=== PATIENT | female | born 1985 | race African-American/Black ===

== ENCOUNTER 2017-01-26 22:12 | Emergency (ER) | payer OTHER ==
[~2017-01-26] VITALS: Ht 160 cm; Wt 71.7 kg
[~2017-01-26 22:12] MED LIST: AUGMENTIN 875875 MG PO; BACTRIM DS TAB1 EACH PO; FLEXERIL PO; IBUPROFEN 600600 M1 PO; NAPROSYN500 MG PO; NOHOMEMEDICATIONS; NORCO 5-325 TA1 EACH PO; TYLENOL EX-STR500 M2 PO
[2017-01-26 22:57] LABS: URINE BILIRUBIN NEGATIVE (Negative); URINE BLOOD NEGATIVE (Negative); URINE COLOR YELLOW; URINE GLUCOSE-RANDOM* NEGATIVE (Negative); URINE KETONES NEGATIVE (Negative); URINE LEUKOCYTES-REFLEX 1+ (Negative); URINE PROTEIN (DIPSTICK) NEGATIVE (Negative); URINE UROBILINOGEN 0.2 E.U./dl (0.2-1.0)
[2017-01-26 22:57] LABS: ABSOLUTE NEUTROPHILS 8.4 thou/uL (1.4-8.2); BASOPHILS 0.4 % (0.0-2.0); EOSINOPHILS 2.4 % (0.0-3.0); HEMOGLOBIN 11.5 gm/dL (12.0-15.0); LYMPHOCYTES 22.1 % (24.0-44.0); MCH 28.2 pg (26.0-34.0); MCV 85.5 fL (80.0-100.0); MONOCYTES 7.1 % (1.0-8.0); PLATELET COUNT 212 thou/uL (150-400); RBC 4.09 mil/uL (4.20-5.00); RDW 13.5 % (10.5-14.5); WBC 12.4 thou/uL (4.0-11.0)
[2017-01-26 22:58] LABS: MANUAL DIFF NO
[2017-01-26 23:08] LABS: CASTS None Seen /LPF (None Seen); SQUAMOUS 4-10 Moderate /LPF (0-3)
[2017-01-26 23:09] LABS: CRYSTALS None Seen /LPF (None Seen); URINE RBC None Seen /HPF (0-2); URINE WBC-REFLEX 0-5 Rare /HPF (0-5)
[2017-01-26 23:17] LABS: CALCIUM 8.5 mg/dL (8.5-10.1); CREATININE 0.7 mg/dL (0.6-1.3); POTASSIUM 3.7 mmol/L (3.5-5.1)
[2017-01-26 23:22] LABS: ALBUMIN 3.2 g/dL (3.4-5.0); TOTAL BILIRUBIN 0.2 mg/dL (<0.1-1.0); TOTAL PROTEIN 6.4 g/dL (6.4-8.2)
[2017-01-27 00:17] VITALS: BP 142/83
== END 2017-01-27 00:18 | disposition home or self-care (01) ==
LOC: ER 22:12
PROVIDERS: Physician Assistant
DX: O26.899 Other specified pregnancy related conditions, unspecified trimester (principal); M54.5 Low back pain; R60.9 Edema, unspecified; R10.30 Lower abdominal pain, unspecified; R51 Headache; F17.210 Nicotine dependence, cigarettes, uncomplicated; F10.99 Alcohol use, unspecified with unspecified alcohol-induced disorder; Z3A.00 Weeks of gestation of pregnancy not specified

== ENCOUNTER 2017-02-12 20:06 | Emergency (ER) | payer OTHER ==
[~2017-02-12] VITALS: Ht 160 cm; Wt 88.9 kg
[2017-02-12 20:29] LABS: URINE BILIRUBIN NEGATIVE (Negative); URINE BLOOD 3+ (Negative); URINE COLOR YELLOW; URINE GLUCOSE-RANDOM* NEGATIVE (Negative); URINE KETONES 1+ (Negative); URINE NITRITE NEGATIVE (Negative); URINE PROTEIN (DIPSTICK) 1+ (Negative); URINE SPECIFIC GRAVITY 1.025 (1.003-1.035)
[2017-02-12 20:32] LABS: CASTS None Seen /LPF (None Seen); CRYSTALS None Seen /LPF (None Seen); SQUAMOUS 0-3 Few /LPF (0-3); URINE RBC 3-10 Few /HPF (0-2); URINE WBC 0-5 Rare /HPF (0-5)
[2017-02-12 20:56] LABS: ABSOLUTE NEUTROPHILS 8.6 thou/uL (1.4-8.2); BASOPHILS 0.4 % (0.0-2.0); EOSINOPHILS 2.8 % (0.0-3.0); HEMATOCRIT 33.6 % (37.0-47.0); LYMPHOCYTES 23.9 % (24.0-44.0); MCH 28.1 pg (26.0-34.0); MCHC 32.8 g/dL (28.0-37.0); MCV 85.6 fL (80.0-100.0); MONOCYTES 6.2 % (1.0-8.0); PLATELET COUNT 209 thou/uL (150-400); POLYS 66.7 % (36.0-66.0); RBC 3.92 mil/uL (4.20-5.00); RDW 13.7 % (10.5-14.5); WBC 12.9 thou/uL (4.0-11.0)
[2017-02-12 20:57] LABS: MANUAL DIFF NO
[2017-02-12 21:06] LABS: CALCIUM 8.5 mg/dL (8.5-10.1); CREATININE 0.8 mg/dL (0.6-1.0); POTASSIUM 3.5 mmol/L (3.5-5.1)
[2017-02-12 22:15] VITALS: BP 92/47
== END 2017-02-12 22:17 | disposition home or self-care (01) ==
LOC: ER 20:06
PROVIDERS: Nurse Practitioner Family
DX: O20.0 Threatened abortion (principal); G89.29 Other chronic pain; M54.9 Dorsalgia, unspecified; F17.210 Nicotine dependence, cigarettes, uncomplicated; Z3A.01 Less than 8 weeks gestation of pregnancy; Z98.890 Other specified postprocedural states

== ENCOUNTER 2017-02-17 09:15 | Emergency (ER) | payer OTHER ==
[~2017-02-17] VITALS: Ht 162.6 cm; Wt 72.6 kg
[2017-02-17 09:38] LABS: ABSOLUTE NEUTROPHILS 8.6 thou/uL (1.4-8.2); BASOPHILS 0.5 % (0.0-2.0); EOSINOPHILS 1.6 % (0.0-3.0); HEMATOCRIT 37.7 % (37.0-47.0); HEMOGLOBIN 12.2 gm/dL (12.0-15.0); LYMPHOCYTES 17.5 % (24.0-44.0); MCH 28.1 pg (26.0-34.0); MCHC 32.4 g/dL (28.0-37.0); MCV 86.8 fL (80.0-100.0); MONOCYTES 5.5 % (1.0-8.0); PLATELET COUNT 218 thou/uL (150-400); POLYS 74.9 % (36.0-66.0); RBC 4.34 mil/uL (4.20-5.00); RDW 13.8 % (10.5-14.5); WBC 11.5 thou/uL (4.0-11.0)
[2017-02-17 09:39] LABS: MANUAL DIFF NO
[2017-02-17 10:25] LABS: ALBUMIN 1.7 g/dL (3.4-5.0); ALKALINE PHOSPHATASE 51 U/L (46-116); ANION GAP 11 mmol/L (7-16); BUN 5 mg/dL (7-18); CHLORIDE 117 mmol/L (98-107); CO2 16 mmol/L (21-32); CREATININE 0.2 mg/dL (0.6-1.0); GLUCOSE 58 mg/dL (74-106); POTASSIUM 3.2 mmol/L (3.5-5.1); SGOT 29 U/L (15-37); SGPT 14 U/L (30-65); TOTAL BILIRUBIN 0.2 mg/dL (<0.1-1.0); TOTAL PROTEIN 3.4 g/dL (6.4-8.2)
[2017-02-17 10:27] LABS: SODIUM 144 mmol/L (136-145)
[2017-02-17 10:33] LABS: CALCIUM < 5.0 mg/dL (8.5-10.1)
[2017-02-17 10:57] LABS: POC CA IONIZED 4.7 mg/dL (4.5-5.3); POC CREATININE 0.6 mg/dL (0.6-1.3); POC HEMOGLOBIN 12.2 g/dL (12.0-15.0); POC POTASSIUM 3.9 mmol/L (3.5-5.1)
[2017-02-17] MEDS ORDERED: NORCO 5-325 TA1 EACH PO (11:46)
[2017-02-17 12:20] VITALS: BP 106/64
== END 2017-02-17 12:20 | disposition home or self-care (01) ==
LOC: ER 09:15
PROVIDERS: Physician Assistant
DX: O03.83 Metabolic disorder following complete or unspecified spontaneous abortion (principal); E87.6 Hypokalemia; G89.29 Other chronic pain; F17.210 Nicotine dependence, cigarettes, uncomplicated

== ENCOUNTER 2017-09-05 20:53 | Emergency (ER) | payer OTHER ==
[~2017-09-05] VITALS: Ht 160 cm; Wt 88.9 kg
[2017-09-05] MEDS ORDERED: PRENATAL (21:02)
[2017-09-05 22:30] LABS: HEMATOCRIT 36.2 % (37.0-47.0); HEMOGLOBIN 11.7 gm/dL (12.0-15.0); MCH 28.1 pg (26.0-34.0); MCHC 32.4 g/dL (28.0-37.0); MCV 86.8 fL (80.0-100.0); RBC 4.17 mil/uL (4.20-5.00); RDW 13.3 % (10.5-14.5); WBC 15.2 thou/uL (4.0-11.0)
[2017-09-05 22:36] LABS: CALCIUM 8.8 mg/dL (8.5-10.1); CREATININE 0.7 mg/dL (0.6-1.0); POTASSIUM 3.8 mmol/L (3.5-5.1)
[2017-09-05 22:50] LABS: URINE BILIRUBIN NEGATIVE (Negative); URINE BLOOD NEGATIVE (Negative); URINE COLOR YELLOW; URINE GLUCOSE-RANDOM* NEGATIVE (Negative); URINE KETONES NEGATIVE (Negative); URINE PROTEIN (DIPSTICK) NEGATIVE (Negative); URINE SPECIFIC GRAVITY <= 1.005 (1.003-1.035); URINE UROBILINOGEN 0.2 E.U./dl (0.2-1.0)
[2017-09-05 23:00] LABS: URINE LEUKOCYTES-REFLEX TRACE (Negative)
[2017-09-05 23:09] LABS: CASTS None Seen /LPF (None Seen); CRYSTALS None Seen /LPF (None Seen); SQUAMOUS None Seen /LPF (0-3); URINE RBC None Seen /HPF (0-2); URINE WBC-REFLEX 0-5 Rare /HPF (0-5)
[2017-09-05] MEDS ORDERED: KEFLEX500 M1 PO (23:13)
[2017-09-05 23:24] VITALS: BP 107/59
[2017-09-07 15:06] LABS: CHLAMYDIA TRACHOMATIS-PCR Negative (Negative); NEISSERIA GONORRHEA-PCR Negative (Negative)
== END 2017-09-05 23:27 | disposition home or self-care (01) ==
LOC: ER 20:53
PROVIDERS: Emergency Medicine
DX: O26.891 Other specified pregnancy related conditions, first trimester (principal); R78.81 Bacteremia; F17.210 Nicotine dependence, cigarettes, uncomplicated; G89.29 Other chronic pain

== ENCOUNTER 2017-10-25 15:34 | Emergency (ER) | payer OTHER ==
[~2017-10-25] VITALS: Ht 160 cm; Wt 90.7 kg
[~2017-10-25 15:34] MED LIST changes: +KEFLEX500 M1 PO; +PRENATAL
[2017-10-25 15:37] VITALS: BP 105/64
[2017-10-25] MEDS ORDERED: SALINE NASAL SP30 ML NASAL (15:57)
[2017-10-25] MEDS ORDERED: AMOXICILLIN 50500 MG PO (15:57)
== END 2017-10-25 16:16 | disposition home or self-care (01) ==
LOC: ER 15:34
DX: R51 Headache (principal); J02.9 Acute pharyngitis, unspecified; R09.81 Nasal congestion; G89.29 Other chronic pain; O26.891 Other specified pregnancy related conditions, first trimester; Z3A.13 13 weeks gestation of pregnancy; F17.210 Nicotine dependence, cigarettes, uncomplicated

== ENCOUNTER 2017-11-06 20:12 | Emergency (ER) | payer OTHER ==
[~2017-11-06] VITALS: Ht 157.5 cm; Wt 90.7 kg
[~2017-11-06 20:12] MED LIST changes: +AMOXICILLIN 50500 MG PO; +SALINE NASAL SP30 ML NASAL
[2017-11-06 20:44] LABS: URINE BILIRUBIN NEGATIVE (Negative); URINE BLOOD NEGATIVE (Negative); URINE CLARITY CLEAR; URINE COLOR YELLOW; URINE GLUCOSE-RANDOM* NEGATIVE (Negative); URINE KETONES 2+ (Negative); URINE LEUKOCYTES TRACE (Negative); URINE NITRITE NEGATIVE (Negative); URINE PROTEIN (DIPSTICK) NEGATIVE (Negative); URINE SPECIFIC GRAVITY 1.025 (1.005-1.035); URINE UROBILINOGEN 0.2 E.U./dl (0.2-1.0)
[2017-11-06 21:08] LABS: BASOPHILS 0.5 % (0.0-2.0); EOSINOPHILS 1.4 % (0.0-3.0); HEMATOCRIT 34.2 % (37.0-47.0); HEMOGLOBIN 11.2 gm/dL (12.0-15.0); LYMPHOCYTES 16.3 % (24.0-44.0); MCH 28.3 pg (26.0-34.0); MCHC 32.7 g/dL (28.0-37.0); MCV 86.7 fL (80.0-100.0); MONOCYTES 4.8 % (1.0-8.0); PLATELET COUNT 233 thou/uL (150-400); RBC 3.94 mil/uL (4.20-5.00); RDW 13.7 % (10.5-14.5); WBC 16.9 thou/uL (4.0-11.0)
[2017-11-06 21:18] LABS: CALCIUM 8.8 mg/dL (8.5-10.1); CREATININE 0.6 mg/dL (0.6-1.0)
[2017-11-06 21:24] LABS: TOTAL BILIRUBIN 0.2 mg/dL (<0.1-1.0); TOTAL PROTEIN 6.9 g/dL (6.4-8.2)
[2017-11-06 21:34] LABS: CASTS None Seen /LPF (None Seen); MUCUS 4-6 Moderate strn/LPF (None Seen); SQUAMOUS >10 Many /LPF (0-3); URINE RBC None Seen /HPF (0-2); URINE WBC 0-5 Rare /HPF (0-5)
[2017-11-06 21:35] LABS: BACTERIA 1-9 Few /HPF (None Seen); CRYSTALS None Seen /LPF (None Seen)
[2017-11-06] MEDS ORDERED: KEFLEX500 M1 PO (22:34)
== END 2017-11-06 23:02 | disposition home or self-care (01) ==
LOC: ER 20:12
PROVIDERS: Nurse Practitioner Family
DX: O26.892 Other specified pregnancy related conditions, second trimester (principal); E87.6 Hypokalemia; R78.81 Bacteremia; G89.29 Other chronic pain

== ENCOUNTER 2017-11-08 16:04 | Emergency (ER) | payer OTHER ==
[~2017-11-08] VITALS: Ht 160 cm; Wt 90.7 kg
[2017-11-08 17:11] LABS: URINE BILIRUBIN NEGATIVE (Negative); URINE BLOOD NEGATIVE (Negative); URINE CLARITY CLEAR; URINE COLOR YELLOW; URINE GLUCOSE-RANDOM* NEGATIVE (Negative); URINE KETONES NEGATIVE (Negative); URINE LEUKOCYTES-REFLEX NEGATIVE (Negative); URINE NITRITE-REFLEX NEGATIVE (Negative); URINE PROTEIN (DIPSTICK) NEGATIVE (Negative); URINE SPECIFIC GRAVITY >= 1.030 (1.005-1.035); URINE UROBILINOGEN 0.2 E.U./dl (0.2-1.0)
[2017-11-08 17:13] LABS: HEMATOCRIT 33.9 % (37.0-47.0); HEMOGLOBIN 11.4 gm/dL (12.0-15.0); MCH 28.9 pg (26.0-34.0); MCHC 33.5 g/dL (28.0-37.0); MCV 86.1 fL (80.0-100.0); RBC 3.94 mil/uL (4.20-5.00); RDW 13.7 % (10.5-14.5); WBC 14.3 thou/uL (4.0-11.0)
[2017-11-08 17:24] LABS: CALCIUM 8.7 mg/dL (8.5-10.1); CREATININE 0.6 mg/dL (0.6-1.0); POTASSIUM 3.4 mmol/L (3.5-5.1)
[2017-11-08 17:30] LABS: ALBUMIN 2.9 g/dL (3.4-5.0); TOTAL BILIRUBIN 0.2 mg/dL (<0.1-1.0); TOTAL PROTEIN 6.8 g/dL (6.4-8.2)
== END 2017-11-08 19:05 | disposition home or self-care (01) ==
LOC: ER 16:04
PROVIDERS: Emergency Medicine
DX: O26.892 Other specified pregnancy related conditions, second trimester (principal); R10.2 Pelvic and perineal pain; G89.29 Other chronic pain; M54.9 Dorsalgia, unspecified; Z98.890 Other specified postprocedural states; Z87.891 Personal history of nicotine dependence; Z3A.00 Weeks of gestation of pregnancy not specified

== ENCOUNTER 2018-12-14 20:30 | Emergency (ER) | payer OTHER ==
[~2018-12-14] VITALS: Ht 157.5 cm; Wt 79.4 kg
[2018-12-14 20:30] VITALS: BP 121/70
[2018-12-14] MEDS ORDERED: ROBAXIN 750 MG750 M1 PO (21:22)
[2018-12-14] MEDS ORDERED: NAPROSYN500 MG PO (21:22)
== END 2018-12-14 21:29 | disposition home or self-care (01) ==
LOC: ER 20:30
DX: S29.012A Strain of muscle and tendon of back wall of thorax, initial encounter (principal); G89.29 Other chronic pain; Z87.891 Personal history of nicotine dependence; Z98.890 Other specified postprocedural states; V89.2XXA Person injured in unspecified motor-vehicle accident, traffic, initial encounter; Y92.89 Other specified places as the place of occurrence of the external cause; Y93.89 Activity, other specified; Y99.8 Other external cause status

== ENCOUNTER 2020-05-14 19:28 | Observation (INO) | payer OTHER ==
[~2020-05-14] VITALS: Ht 160 cm; Wt 95.2 kg
[~2020-05-14 19:28] MED LIST changes: +ROBAXIN 750 MG750 M1 PO
[2020-05-14 19:31] VITALS: BP 123/73
[2020-05-14 20:09] LABS: ABSOLUTE NEUTROPHILS 17.2 thou/uL (1.4-8.2); BASOPHILS 0.3 % (0.0-2.0); EOSINOPHILS 0.9 % (0.0-3.0); HEMATOCRIT 39.5 % (37.0-47.0); HEMOGLOBIN 12.9 gm/dL (12.0-15.0); LYMPHOCYTES 7.6 % (24.0-44.0); MCH 28.9 pg (26.0-34.0); MCHC 32.6 g/dL (28.0-37.0); MCV 88.8 fL (80.0-100.0); MONOCYTES 4.9 % (1.0-8.0); PLATELET COUNT 232 thou/uL (150-400); POLYS 86.3 % (36.0-66.0); RBC 4.45 mil/uL (4.20-5.00); RDW 14.3 % (10.5-14.5); WBC 19.9 thou/uL (4.0-11.0)
[2020-05-14 20:11] LABS: URINE BILIRUBIN NEGATIVE (Negative); URINE BLOOD NEGATIVE (Negative); URINE COLOR YELLOW; URINE GLUCOSE-RANDOM* NEGATIVE (Negative); URINE KETONES NEGATIVE (Negative); URINE LEUKOCYTES-REFLEX NEGATIVE (Negative); URINE NITRITE-REFLEX NEGATIVE (Negative); URINE PROTEIN (DIPSTICK) NEGATIVE (Negative); URINE SPECIFIC GRAVITY 1.015 (1.005-1.035); URINE UROBILINOGEN 0.2 E.U./dl (0.2-1.0)
[2020-05-14 20:12] LABS: URINE CLARITY SL HAZY
[2020-05-14 20:26] LABS: CALCIUM 8.4 mg/dL (8.5-10.1); CREATININE 0.8 mg/dL (0.6-1.0); POTASSIUM 3.6 mmol/L (3.5-5.1)
[2020-05-14 20:32] LABS: ALBUMIN 3.3 g/dL (3.4-5.0); TOTAL BILIRUBIN 0.3 mg/dL (0.2-1.0); TOTAL PROTEIN 6.9 g/dL (6.4-8.2)
[2020-05-14 23:45] VITALS: BP 115/78
[2020-05-15] VITALS (10 sets, daily range): BP systolic 106–130; BP diastolic 58–88
--- NOTE | 2020-05-15 00:05 | NUR ---
Report given to CAROLYN Pandya
--- NOTE | 2020-05-15 03:22 | NUR ---
PT WAS ADMITTED TO THE UNIT FROM THE ER AT 0040 IN A STABLE CONDITION ADMISSION HX,EDUCATION AND ASSESSMENT COMPLETED.PT C/O PAIN ON HER ABD,DR RODRIGUEZ NOTIFIED,ORDER NOTED AND CARRIED OUT.IVF INFUSING ORDERED.PT SLEEPING AT THIS TIME.CALL LIGHT WITHIN REACH.
--- NOTE | 2020-05-15 07:30 | NUR ---
PT WAS UPSET REGARDING NPO STATUS AND WANTED TO KNOW SURGERY TIME. INFORMED THAT SURGERY WILL BE AROUND 1230 AFTER COVID RESULTS ARE RESULTED...
--- NOTE | 2020-05-15 07:48 | EKG ---
[facility] [place] [address] ELECTROCARDIOGRAM REPORT Name: CHARLINE AQUINO Room #: [facility]- ADM Sandee M.R.#: [id number] Admission: 05/14/20 Attend Phys: Lance Menard MD Discharge: Date of : 89 Report #: [id number] THIS REPORT FOR: cc: VICENTE Vigil family physician/PCP VICENTE Vigil family physician/PCP Cayden Navarro MD [facility] THIS REPORT FOR: //name// [facility] ED Test Date: 2020-05-14 Test Time: 19:54:54 Pat Name: CHARLINE AQUINO Department: Room: [facility] Gender: F 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 : 1985 Requested By: Lance Menard Order Number: [id number] MD: Cayden Navarro Measurements Intervals [place] Rate: 79 P: 57 MA: 196 QRS: 48 QRSD: 97 T: 18 QT: 344 QTc: 395 Interpretive Statements Sinus rhythm Normal tracing No previous ECG available for comparison Electronically Signed On 05-15-2020 7:48:17 CDT by Cayden Navarro [email or web address] <ELECTRONICALLY SIGNED> By: Cayden Navarro MD, [facility] 05/15/2048 53 53 Cayden Navarro MD, [facility] /EPI
[2020-05-15] MEDS ORDERED: NORCO 10-325 T1 EACH PO (12:59)
--- NOTE | 2020-05-15 15:40 | NUR ---
PT HAS LAP APPENDECTOMY TODAY..RETURNED TO FLOOR AROUND 1300...INSTRUCTED TO START WITH CLEAR LIQUIDS TIL TOLERATE...VSS..MEDICATED FOR PAIN WITH NORCO X 2 @ 1540 FOR PAIN AROUND 05/16 WITH FAIRLY GOOD RESULTS...LAP SITE X 3 INTACT WITH DERMABOND...DENIES NAUSEA...AMBULATED TO BATHOM X 2 WITH STEADY GAIT...VOIDING WELL...
--- NOTE | 2020-05-16 01:17 | NUR ---
PT REQUESTED TO BE DICHARGED DURING CHANGE OF SHIFT REPORT.PT WAS DISCHRGED AT APPROX 1940.PT LEFT WITH ALL HER PERSONAL BELONGINGS.
--- NOTE | 2020-05-16 17:15 | PATH ---
[facility] [address] [place] [address] PATHOLOGY RPT PROCEDURE Name: CHARLINE AQUINO Room #: 447-P KIERRA Lechuga#: [id number] Admission: 05/14/20 Date of : 89 Discharge: 05/15/20 Report #: [id number] Path Case #: [id number] [facility] Accession Number: [id number] . 01 Material submitted: . appendix - APPENDIX . 01 Clinical history: . Acute appendicitis . 02 Diagnosis: Appendix, appendectomy: - Marked acute appendicitis along with acute serositis. 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 02 Electronically signed: . Ladonna Mane MD, Pathologist NPI- [id number] . 01 Gross description: . The specimen is received in formalin, labeled "Charline Aquino, appendix". Received is a vermiform appendix measuring 7.0 cm in length by up to 0.9 cm in diameter with a moderate amount of attached mesoappendix. The serosal surface is pink-alonso in appearance with moderate vasculature. The surgical margin is closed with a line of rebeca. The rebeca are removed and the new margin is inked black. Sectioning reveals a pinpoint to patent lumen filled with a slight amount of pale alonso material. The specimen is submitted representatively in cassettes A1 and A2, with the proximal margin and bisected tip submitted in cassette A1. (CAA; 05/15/2020) QAC/QAC 05/16/2020 1556 Local . 02 Pathologist provided ICD-10: K35.30 . 02 CPT . 397022 Specimen Comment: A courtesy copy of this report has been sent to [phone] Specimen Comment: Report sent to / DR RODRIGUEZ Performed at: [address], [place] [id number] MD Miguelangel Vazquez MD Phone: [phone] Performed at: [address] [id number] [address] [address] PATHOLOGY RPT PROCEDURE Name: CHARLINE AQUINO Room #: 447-P KIERRA Lechuga#: [id number] Admission: 05/14/20 Date of : [birth year] Discharge: 05/15/20 Report #: [id number] Path Case #: [id number] MD Ladonna Mane [place] Phone: [phone]
--- NOTE | 2020-05-17 13:33 | O ---
[facility] [place] [address] OPERATIVE REPORT Name: CHARLINE AQUINO Room #: 447-P [facility] Sandee Lechuga#: [id number] Admission: 05/14/20 Attend Phys: Lance Menard MD Discharge: 05/15/20 Date of : 89 Report #: [id number] THIS REPORT FOR: cc: VICENTE - No family physician/PCP VICENTE - No family physician/PCP Manas Brikn MD ~ CC: Lance ZHANG physician/PCP DATE OF SERVICE: 05/15/2020 PREOPERATIVE DIAGNOSIS: Acute appendicitis. POSTOPERATIVE DIAGNOSIS: Acute appendicitis. OPERATION: Laparoscopic appendectomy. SURGEON: Manas Brink MD ANESTHESIA: General. ESTIMATED BLOOD LOSS: Minimal. SPECIMEN: Appendix. DESCRIPTION OF PROCEDURE: After informed consent was obtained, the patient was brought to the operating room and placed supine. SCDs were placed and working, preoperative antibiotics were administered, general anesthesia was induced. The abdomen was prepped and draped in the usual sterile fashion. A 10 mm incision was made below the umbilicus. Fascia was incised and a trocar was placed. Pneumoperitoneum was established. A right upper quadrant and left lower quadrant 5 mm trocar was placed. The patient was placed with the left side tilted down. The appendix was visualized. It was edematous and inflamed, but not perforated. The mesoappendix was isolated and it was stapled off with a KENIA ricci load stapler. There was good hemostasis. The base of the appendix was then stapled off with a KENIA blue load stapler. The appendix was placed into an Endopouch and removed. The ports were removed under direct vision. The fascia was closed with a [id number] 0 Vicryl. Skin was closed with 4-0 Monocryl. Incisions were sealed with Dermabond. COMPLICATIONS: None. [facility] [address] [place] [address] OPERATIVE REPORT Name: CHARLINE AQUINO Room #: 447-P [facility] Sandee Lechuga#: [id number] Admission: 05/14/20 Attend Phys: Lance Menard MD Discharge: 05/15/20 Date of : 89 Report #: [id number] DISPOSITION: The patient was taken to recovery in satisfactory condition. <ELECTRONICALLY SIGNED> By: Manas Brink MD 05/17/20 1333 1256 1309 Manas Brink MD /nt
== END 2020-05-15 19:40 | disposition home or self-care (01) ==
LOC: ER 19:28 → EROBS 23:35 → 4S 05-15 00:49
PROVIDERS: Emergency Medicine; ADMIT Surgery; ATTEND Surgery
DX: Z03.818 Encounter for observation for suspected exposure to other biological agents ruled out (principal); K35.80 Unspecified acute appendicitis; F17.210 Nicotine dependence, cigarettes, uncomplicated
CPT/HCPCS: 50010; 50101; 50411; 50555; 50739; 50740; 51489; 52265; 52266; 53307; 53312; 53314; 54118; 56525; 56526; 62110; 62900; 70005